=== PATIENT | male | born 1970 | race Caucasian/White ===

== ENCOUNTER 2024-06-29 12:21 | Inpatient (IN) ==
[2024-06-29 15:58] LABS: Urine Benzodiazepine Screen None Detected (None Detect); Urine Cannabinoids Screen None Detected (None Detect); Urine Opiates Screen None Detected (None Detect)
[2024-06-29 17:45] LABS: Urine Benzodiazepine Screen None Detected (None Detect); Urine Cannabinoids Screen None Detected (None Detect); Urine Opiates Screen None Detected (None Detect)
[2024-06-29] MEDS ORDERED: Al Hydrox/Mg Hydrox/Simet LIQ 30 ML UDC PO PRN (18:43)
[2024-06-30] MEDS: Vitamin THERAPEUTIC TAB PO SCH (09:57)
[2024-06-30] MEDS ORDERED: OLANZapine 5 mg TAB *ODT PO PRN (11:25)
[2024-07-01 09:34] LABS: HDL Cholesterol 36.1 mg/dL
[2024-07-11] MEDS: Clotrimazole 1% CREAM 45 GM TOPICAL SCH (21:10)
[2024-07-12] MEDS: Polyethylene Glycol 3350 17 GM PACKET PO SCH (09:11)
[2024-07-13] MEDS: Clotrimazole 1% CREAM 30 gm TOPICAL SCH (21:54)
[2024-07-15] MEDS: Paliperidone SUSTENNA 234 MG/1.5 ML IM ONE (09:55)
[2024-07-18 11:05] VITALS: BP 121/85
[2024-07-18] MEDS: Paliperidone SUSTENNA 156 MG/1 ML IM ONE (12:00)
== END 2024-07-18 15:00 | disposition home or self-care (01) | DRG 750 ==
LOC: ED 12:21 → EDHOLD 18:43 → BSU 19:26
PROVIDERS: ADMIT Psychiatry & Neurology Psychiatry; ATTEND Psychiatry & Neurology Psychiatry